=== PATIENT | female | born 1945 | race Two or more races ===

== ENCOUNTER 2024-12-10 07:24 | Emergency (ER) | payer OTHER ==
[~2024-12-10] VITALS: Ht 152.4 cm; Wt 112.0 kg
[2024-12-10] MEDS ORDERED: HYDROCHLOROTH12.5 MG (07:47)
[2024-12-10] MEDS ORDERED: COZAAR100 MG PO (07:47)
[2024-12-10] MEDS ORDERED: LANTUS SOL100 UNIT/1 SQ (07:47)
[2024-12-10] MEDS ORDERED: PREDNISONE10 M2 PO (07:48)
[2024-12-10 10:28] LABS: HEMATOCRIT 28.7 % (36.0-45.00); HEMOGLOBIN 9.7 g/dL (12.0-15.00); MEAN CELL VOLUME 97.4 fL (80.00-100.00); MEAN CORPUSCULAR HEMOGLOBIN 32.8 pg (27.00-32.0); MEAN CORPUSCULAR HGB CONC 33.7 g/dl (32.0-36.0); RED BLOOD COUNT 2.95 M/uL (4.00-6.00); RED CELL DISTRIBUTION WIDTH 16.5 % (11.5-14.5)
[2024-12-10 10:29] LABS: PLATELET COUNT 121 K/uL (150-450)
[2024-12-10 10:49] LABS: CALCIUM 8.8 mg/dL (8.5-10.1); CREATININE SERUM 1.03 mg/dL (0.55-1.02); GFR 51.96; POTASSIUM 4.87 mEq/L (3.5-5.1)
== END 2024-12-10 12:51 | disposition home or self-care (01) ==
LOC: ER 07:24
PROVIDERS: General Practice
DX: S09.8XXA Other specified injuries of head, initial encounter (principal); W18.39XA Other fall on same level, initial encounter; Y93.89 Activity, other specified; Y92.012 Bathroom of single-family (private) house as the place of occurrence of the external cause; Z88.0 Allergy status to penicillin; E78.00 Pure hypercholesterolemia, unspecified; I87.2 Venous insufficiency (chronic) (peripheral); E11.65 Type 2 diabetes mellitus with hyperglycemia; Z79.4 Long term (current) use of insulin